=== PATIENT | female | born 1990 | race Caucasian/White ===

== ENCOUNTER 2023-06-06 10:16 | Outpatient (AMB) | payer OTHER, SELFPAY ==
--- NOTE | 2023-06-06 10:25 | A.OFFPC_ITS ---
Vital Signs 06/06/23 10:27 Height 5 ft 3 in Weight 219 lb BMI 38.8 BP 104/86 Blood Pressure Location Lt brachial Position Sitting Pulse 92 Pulse Source Pulse Oximeter Temp Source Skin Pulse Oximetry (%) 99 Oxygen Delivery Method Room Air Intake Visit Reasons: REGISTERED NURSE TEACHER, request a physical Technology Support Analyst Required: No Allergies No Known Allergies Allergy (Verified 06/06/23 10:46) Medication List - Last Reconciled 06/06/23 by RODDY Mosley No Known Home Meds Tobacco use date assessed: 06/06/23 Dental Screening Dental Screen Date: 06/06/23 Did you have a dental visit in the last 12 months?: Yes Did you have a dental problem in the last 6 months where you did not have access to dental care?: No Was dental information given to patient?: Patient has dentist HPI REGISTERED NURSE TEACHER, request a physical HPI Details Patient is a 32-year-old female presents today to establish care. Patient reports last PCP about 6 years ago. Medical history significant for depression, anxiety, OCD, PTSD, dissociated disorder-mental health conditions are followed by therapist on weekly basis-patient reports that she saw Psychiatry about 6 months ago-reports she was on antidepressant medication in the past-not interested in pharmacological intervention for depression at this time. Denies SI or HI. Patient reports intermittent right upper quadrant discomfort for the past couple days. No nausea or vomiting, no changes in bowel/bladder. She reports that her mother has ovarian cancer-will refer for genetic testing. Patient denies shortness of breath or chest pain. Patient is unemployed and she lives with her boyfriend and 5 children. [facility] Surgical History No pertinent past surgical history Family History Mother Ovarian cancer Pericarditis Alcoholic Maternal Grandmother Ovarian cancer Father No problems noted. Social History Housing: Apartment Patient Tobacco Use Status: Former Tobacco user service: No Current occupational status: unemployed Cognitive needs: No Hearing needs: No Vision needs: Yes Questionnaire PHQ-9 Over the last 2 weeks, how often have you been bothered by any of the following problems? 1. Little interest or pleasure in doing things: nearly every day 2. Feeling down, depressed, or hopeless: nearly every day 3. Trouble falling or staying asleep, or sleeping too much: nearly every day 4. Feeling tired or having little energy: nearly every day 5. Poor appetite or overeating: more than half the days 6. Feeling bad about yourself - or that you are a failure or have let yourself or your family down: more than half the days 7. Trouble concentrating on things, such as reading the newspaper or watching television: more than half the days 8. Moving or speaking so slowly that other people could have noticed. Or the opposite - being so fidgety or restless that you have been moving around a lot more than usual: not at all 9. Thoughts that you would be better off or of hurting yourself in some way: not at all Total score: 18 Depression Screening Interpretation: Positive Depression Screening Follow-up: In treatment 85385 - PHQ-9 Billing: Yes Source: Developed by Drs. Kan Rojas, Manju Aly, Jason Silva and colleagues, with an educational kashif from [employer]. Thrive Questionnaire Date Thrive assessed: 06/06/23 I am a: Patient What is your living situation today?: I have a steady place to live Within the past 12 months, did the food you bought not last and you didn't have the money to get more?: Never true Within the past 12 months, did you worry whether your food would run out before you got money to buy more?: Never true Do you have trouble paying for medicines?: No Do you have trouble getting transportation to medical appointments?: No Do you have trouble paying your heating and electricity bill?: No Do you have trouble taking care of your child, family member or friend?: No Do you have trouble with day-to-day activities such as bathing, preparing meals, shopping, managing finances, etc.?: No Are you currently unemployed and looking for a job?: No Are you interested in more education?: No Currently or been in a relationship where the following occur: no concerns reported AUDIT C Alcohol Use Questionnaire (AUDIT-C) 1. How often do you have a drink containing alcohol?: Never 2. How many drinks containing alcohol do you have on a typical day when you are drinking?: 1 or 2 (0) 3. How often do you have six or more drinks on one occasion?: Never Total Score: 0 Score Reviewed/Action Taken: No TANIA-7 AMB Questionnaire TANIA-7 Date TANIA - 7 assessed: 06/06/23 Feeling nervous, anxious, or on edge: 1 = Several days Not being able to stop or control worryin = Nearly every day Worrying too much about different things: 3 = Nearly every day Trouble relaxin = Several days Being so restless that it is hard to sit still: 1 = Several days Becoming easily annoyed or irritable: 1 = Several days Feeling afraid as if something awful might happen: 3 = Nearly every day Total TANIA-7 score (0-4 normal; 5-9 mild; 10-14 moderate; 15-21 severe): 13 Source: Developed by Drs. Kan Rojas, Manju Aly, Jason Silva and colleagues, with an educational kashif from [employer]. TANIA-7 Assessment Billing TANIA-7 Assessment Tool: TANIA-7 Assessment 13381 Review of Systems Const Denies body aches, Denies chills, Denies fever(s) and Denies headache(s) Eyes Denies change in vision ENT Denies dizziness, Denies otalgia, Denies headache(s), Denies nasal discharge, Denies sinus pain and Denies sore throat Card Denies chest pain, Denies edema, Denies lightheadedness and Denies dyspnea Resp Denies cough and Denies dyspnea GI Reports as per HPI, Reports abdominal pain, Denies constipation, Denies diarrhea, Denies nausea and Denies vomiting Denies hematuria, Denies dysuria and Denies flank pain Musc Denies myalgias Skin/Breast Denies rash Neuro Denies dizziness and Denies headache(s) Physical exam (Primary Care) Vital Signs: Last Vital Signs Pulse 92 06/06/23 10:27 BP 104/86 06/06/23 10:27 Pulse Ox 99 06/06/23 10:27 Oxygen Delivery Method Room Air 06/06/23 10:27 BMI result Body Mass Index 38.8 Tobacco/Smoking Status: Tobacco use Status Tobacco use date assessed 06/06/23 06/06/23 10:26 Patient Tobacco Use Status Former Tobacco user 06/06/23 10:44 PHQ-9: PHQ-9 Score PHQ-9: Total score 18 06/06/23 10:44 Depression Screening Interpretation: Positive Depression Screening Follow-up: In treatment Thrive Assessment: Date of Thrive Assessment Date Thrive assessed 06/06/23 06/06/23 10:27 Currently or been in a relationship where the following occur: no concerns reported Const General: cooperative and no acute distress Orientation/consciousness: patient oriented x3 HENMT Head: Yes normocephalic and Yes atraumatic Ears: TM's normal bilaterally Face and sinus: Yes sinuses nontender Mouth: oropharynx normal and moist mucous membranes Throat: Yes posterior oropharynx normal Eyes General: appearance normal, both eyes and all related structures Pupils: Equal, round and reactive pupils present EOM: EOMs intact bilaterally Neck Neck: Yes normal visual inspection, Yes full ROM and Yes no lymphadenopathy Thyroid: Thyroid normal Resp Effort & Inspection: normal respiratory effort and able to speak in complete sentences Auscultation: clear to auscultation bilaterally, no crackles, no rales, no rhonchi and no wheezes Cardio Rate: regular rate Rhythm: regular rhythm Heart sounds: S1 normal heart sound present, S2 normal heart sound present and no murmurs GI Other: Patient reports when palpating RUQ she can feel mild discomfort in LUQ Palpation (GI): Soft to palpation, not firm, Tenderness to palpation present (GI) in the RUQ (Mild discomfort); Durand's sign negative and with no rebound tenderness, no guarding, not rigid and no hepatosplenomegaly Auscultation: normal bowel sounds General: No CVA tenderness Back/Spine/Pelvis Back: No CVA tenderness Skin General skin exam: no rashes or lesions noted Neuro General: patient oriented x3 Cranial nerves: Yes Equal, round and reactive pupils present Gait exam (Neuro): Normal gait present Extrem General: Yes full ROM and No edema Assessment and Plan Assessment & Plan (1) RUQ abdominal pain: Code(s): R10.11 - Right upper quadrant pain Plan: See HPI and physical exam for details Abdominal ultrasound ordered Avoid fatty foods (2) Genetic testing: Code(s): Z13.79 - Encounter for other screening for genetic and chromosomal anomalies Plan: Mother with ovarian cancer-will refer for genetic testing (3) Encounter to establish care: Code(s): Z76.89 - Persons encountering health services in other specified circumstances Plan: Patient presents to establish care, blood work ordered (4) Depression: Code(s): F32.A - Depression, unspecified Qualifiers: Depression Type: other depression Qualified Code(s): F32.89 - Other specified depressive episodes Plan: Continue to follow-up with therapist on weekly basis Patient denies SI or HI Reports being on antidepressant medication in the past, not interested in pharmacological intervention at this time, was seen by Psychiatry about 6 months ago (5) Anxiety: Code(s): F41.9 - Anxiety disorder, unspecified Plan: Continue to follow-up with therapist on weekly basis Plan Follow-up in 2 months for PE and labs Orders: Orders Vitamin B12 and Folate Today Z76.89 - Persons encountering health services in other specified circumstances Comprehensive [place]. Panel Fast Today Z76. - Persons encountering health services in other specified circumstances Lipid Panel Today Z76. - Persons encountering health services in other specified circumstances TSH reflex Free T4 Today Z76.89 - Persons encountering health services in other specified circumstances Vitamin D 25-OH Total Today Z76.89 - Persons encountering health services in other specified circumstances Complete Blood Count Auto Diff Today Z76.89 - Persons encountering health services in other specified circumstances US abdomen complete Today R10.11 - Right upper quadrant pain Referrals General Surgery Referral Z13.79 - Encounter for other screening for genetic and chromosomal anomalies Coding Level of Care Code New Pt Level 3 (58962) Diagnoses RUQ abdominal pain R10.11 Genetic testing Z13.79 Encounter to establish care Z76. Depression F32.89 Depression Type: other depression Anxiety F41.9 Additional Codes TANIA-7 Assessment Billing - TANIA-7 Assessment Tool: TANIA-7 Assessment 99359 ([id number])
[2023-06-06 10:27] VITALS: BP 104/86; PULSE 92; O2SAT 99; BMI 38.8
== END 2023-06-06 11:02 | disposition home or self-care (01) ==
PROVIDERS: Visit Provider Nurse Practitioner Family
DX: R10.11 Right upper quadrant pain (principal); Z13.79 Encounter for other screening for genetic and chromosomal anomalies; Z76.89 Persons encountering health services in other specified circumstances; F41.9 Anxiety disorder, unspecified; F32.89 Other specified depressive episodes
CPT/HCPCS: 99203

== ENCOUNTER 2023-06-13 14:36 | Outpatient (REF) | payer OTHER, SELFPAY ==
--- NOTE | ~2023-06-13 | US_ITS ---
EXAMINATION: US ABDOMEN COMPLETE CLINICAL INFORMATION: Right upper quadrant pain. COMPARISON: None available. TECHNIQUE: Real-time imaging of the abdominal viscera. Technically limited study secondary to bowel gas. FINDINGS: PANCREAS: Not well seen due to shadowing from overlying bowel gas. ABDOMINAL AORTA: The proximal, mid, and distal segments are normal in caliber. INFERIOR VENA CAVA: Visualized portions are normal. LIVER: Heterogeneous parenchymal echotexture. Normal size and shape. No focal hepatic lesion. There is no intrahepatic biliary duct dilatation seen. GALLBLADDER: Normal. The gallbladder is physiologically distended without evidence of stones, sludge, polyps, wall thickening or pericholecystic fluid. COMMON BILE DUCT: Normal in caliber measuring 0.3 cm in diameter. RIGHT KIDNEY: Normal. No hydronephrosis. No renal calculi or focal parenchymal lesions. The kidney measures 10.5 cm in maximum dimension. LEFT KIDNEY: Normal. No hydronephrosis. No renal calculi or focal parenchymal lesions. The kidney measures 10.0 cm in maximum dimension. SPLEEN: Normal. The spleen measures 10.6 cm in maximum dimension. FREE FLUID: None. US/US abdomen complete IMPRESSION: 1. Nonspecific heterogeneous parenchymal echotexture of the liver which could be seen in the setting of hepatic steatosis or hepatocellular disease. Correlate with liver function tests. 2. Otherwise, normal examination.
== END 2023-06-13 14:37 | disposition home or self-care (01) ==
LOC: HO.US 14:36
PROVIDERS: PCP Nurse Practitioner Family; Visit Provider Nurse Practitioner Family
DX: R10.11 Right upper quadrant pain (principal)
CPT/HCPCS: 76700

== ENCOUNTER 2023-06-28 08:15 | Outpatient (REF) | payer OTHER, SELFPAY ==
[2023-06-28 08:25] LABS: MANUAL DIFF FLAG NO
[2023-06-28 09:42] LABS: Basophils Absolute Auto 0.1 X10*3/uL (0.0-0.2); Basophils Percent Auto 0.9 % (0-2); Eosinophils Absolute Auto 0.2 X10*3/uL (0.0-0.4); Eosinophils Percent Auto 2.8 % (0-4); Hematocrit 39.3 % (37.0-47.0); Hemoglobin 12.9 g/dl (12.0-16.0); Imm Gran Abs Auto 0.02 X10*3/uL (0.00-0.03); Imm Gran Pct Auto 0.3 % (0.0-0.4); Lymphocytes Absolute Auto 2.6 X10*3/uL (1.2-4.9); Lymphocytes Percent Auto 40.2 % (20-40); Mean Corpuscular HGB Conc 32.8 g/dl (31.0-35.0); Mean Corpuscular Hemoglobin 29.3 pg (27.0-33.0); Mean Corpuscular Volume 89.1 fL (80.0-98.0); Monocytes Absolute Auto 0.7 X10*3/uL (0.1-1.2); Monocytes Percent Auto 10.2 % (2-11); Neutrophils Absolute Auto 2.9 x10*3/uL (2.0-8.3); Neutrophils Percent Auto 45.6 % (45-73); Platelet Count 376 X10*3/uL (160-400); Red Blood Count 4.41 X10*6/uL (4.20-5.50); White Blood Count 6.4 X10*3/uL (4.8-10.8)
[2023-06-28 11:02] LABS: Alanine Aminotransferase 13 U/L (0-31); Alkaline Phosphatase 76 U/L (39-117); Anion Gap 12 (12-20); Aspartate Amino Transferase 13 U/L (5-31); Bilirubin Total 0.4 mg/dL (0.0-1.0); Blood Urea Nitrogen 11 mg/dL (9-16); Calcium 9.5 mg/dL (8.4-10.2); Carbon Dioxide 25 mmol/L (22-29); Chloride 107 mmol/L (96-108); Cholesterol 159 mg/dL; Estimated Glomerular Filt Rate > 60; Glucose Fasting 83 mg/dL (60-99); HDL Cholesterol 37 mg/dL; LDL Cholesterol Calculated 107 mg/dl; Potassium 3.8 mmol/L (3.3-5.1); Sodium 140 mmol/L (135-145); Total Protein 7.3 g/dL (6.5-8.0); Triglycerides 77 mg/dL
[2023-06-28 11:03] LABS: HBS Num1 5.22 mIU/mL (0-7.99); HBc Num1 0.06 S/CO (0.00-0.79); HBsAGNum1 0.38 S/CO (0.00-0.99); Hepatitis B Core Antibody Nonreactive (Nonreactive); Hepatitis B Surface Antigen Negative (Negative); ~HepC Num1 0.08 S/CO (0.00-0.79); ~Hepatitis A Antibody IgM Nonreactive (Nonreactive); ~Hepatitis B Surface Antibody NONREACTIVE (Nonreactive); ~Hepatitis C Antibody Nonreactive (Nonreactive)
[2023-06-28 11:10] LABS: Vitamin B12 376 pg/mL (200-900)
[2023-06-28 11:21] LABS: TSH reflex Free T4 4.38 uIU/mL (0.32-4.0); Vitamin D 25-OH Total 13.3 ng/mL (>30)
[2023-06-28 12:37] LABS: Free T4 (Free Thyroxine) 0.75 ng/dL (0.71-1.85)
== END 2023-06-28 08:16 | disposition home or self-care (01) ==
LOC: HO.LAB 08:15
PROVIDERS: PCP Nurse Practitioner Family; Visit Provider Nurse Practitioner Family
DX: R10.11 Right upper quadrant pain (principal); Z76.89 Persons encountering health services in other specified circumstances
CPT/HCPCS: 36415; 80053; 80061; 82306; 82607; 82746; 84439; 84443; 85025; 86704; 86706; 86709; 86803; 87340

== ENCOUNTER 2023-07-26 15:06 | Outpatient (AMB) | payer OTHER, SELFPAY ==
[2023-07-26 15:11] VITALS: BP 109/66; PULSE 97; BMI 38.3
--- NOTE | 2023-07-26 15:11 | A.OFFVIS_ITS ---
Intake Vital Signs 07/26/23 15:11 Height 5 ft 3 in Weight 216 lb BMI 38.3 BP 109/66 Blood Pressure Location Rt brachial Position Sitting Pulse 97 Intake Visit Reasons: Encounter for other screening for genetic Intake Note: This patient presents for an assessment for genetic testing, family history of cancer. Patient c/o; denies breast complaints at this time. 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 She was sent by her primary care physician as she has a strong history of ovarian cancer in her family. She says her mother was diagnosed to have ovarian cancer in her 20s. A maternal aunt was also diagnosed to have ovarian cancer in her 30s. She says her maternal grandmother was diagnosed to have ovarian cancer although she is uncertain about the age. She denies any history of breast cancer in the family She denies any significant complaints at this time. [facility] Medical History (Updated 07/26/23 @ 15:33 by Filemon Connolly MD) Family history of ovarian cancer Morbid obesity Surgical History No pertinent past surgical history Family History Mother Ovarian cancer, Onset Age: 23 Pericarditis Alcoholic Maternal Grandmother Ovarian cancer Father No problems noted. Family/Other Breast cancer Maternal Aunt Ovarian cancer, Onset Age: 34 Social History Housing: Apartment Patient Tobacco Use Status: Former Tobacco user service: No Current occupational status: unemployed Cognitive needs: No Hearing needs: No Vision needs: Yes Female Reproductive History Menstrual Age of Menarche: 13 Total pregnancies: 3 Review of Systems Const Denies chills and Denies fever(s) Card Denies chest pain, Denies dyspnea and Denies dyspnea on exertion Resp Denies cough, Denies dyspnea and Denies dyspnea on exertion GI Denies hematochezia and Denies change in bowel habits Denies hematuria Musc Denies back pain and Denies limited range of motion Neuro Denies focal weakness and Denies convulsions Psych Denies depression and Denies mood swings Physical Exam Vital Signs: Last Vital Signs Pulse 97 07/26/23 15:11 BP 109/66 07/26/23 15:11 BMI result Body Mass Index 38.3 Const Other: Morbidly obese General: comfortable and no acute distress Orientation/consciousness: patient oriented x3 Neck Neck: Yes no lymphadenopathy Resp Auscultation: clear to auscultation bilaterally Cardio Rhythm: regular rhythm GI Palpation (GI): Soft to palpation, nontender and no guarding Neuro General: patient oriented x3 Assessment & Plan Assessment & Plan (1) Family history of ovarian cancer: Code(s): Z80.41 - Family history of malignant neoplasm of ovary Plan: She has a strong family history of ovarian cancer as described above. Her mother, maternal aunt and grandmother all had ovarian cancer. I therefore explained to her the option of proceeding with genetic testing. I explained to her the occasions of this test to herself and her family. Says he understands and wants to proceed. We will schedule her for genetic counseling as well as genetic testing with [facility]. (2) Morbid obesity: Code(s): E66.01 - Morbid (severe) obesity due to excess calories Plan: I also explained to her that morbid obesity is an independent risk factor for development of cancer in the future. I therefore explained to her the benefits of weight loss. She says he understands. Coding Level of Care Code New Pt Level 3 (86362) Diagnoses Family history of ovarian cancer Z80.41 Morbid obesity E66.01
== END 2023-07-26 15:54 | disposition home or self-care (01) ==
PROVIDERS: PCP Nurse Practitioner Family; Referring Provider Nurse Practitioner Family; Visit Provider Surgery
DX: Z80.41 Family history of malignant neoplasm of ovary (principal); E66.01 Morbid (severe) obesity due to excess calories
CPT/HCPCS: 99203

== ENCOUNTER → 2023-07-26 15:06 | Outpatient (BNVA) | payer OTHER, SELFPAY | PROVIDERS: PCP Nurse Practitioner Family; Referring Provider Nurse Practitioner Family; Visit Provider Surgery | DX: E66.01 Morbid (severe) obesity due to excess calories (principal); Z68.38 Body mass index [BMI] 38.0-38.9, adult; Z80.41 Family history of malignant neoplasm of ovary | CPT/HCPCS: 99202 ==

== ENCOUNTER 2023-08-08 08:35 | Outpatient (REF) | payer OTHER, SELFPAY ==
[2023-08-08 11:16] LABS: TSH reflex Free T4 4.09 uIU/mL (0.32-4.0)
[2023-08-08 11:47] LABS: Free T4 (Free Thyroxine) 0.82 ng/dL (0.71-1.85)
== END 2023-08-08 08:36 | disposition home or self-care (01) ==
LOC: HO.LAB 08:35
PROVIDERS: PCP Nurse Practitioner Family; Visit Provider Nurse Practitioner Family
DX: R79.89 Other specified abnormal findings of blood chemistry (principal)
CPT/HCPCS: 36415; 84439; 84443

== ENCOUNTER 2023-08-09 09:16 | Outpatient (AMB) | payer OTHER, SELFPAY ==
[2023-08-09 09:17] VITALS: BP 112/80; PULSE 87; O2SAT 99; BMI 37.7
--- NOTE | 2023-08-09 09:17 | MHC.PC.OV ---
Vital Signs 08/09/23 09:17 Height 5 ft 3 in Weight 213 lb BMI 37.7 BP 112/80 Blood Pressure Location Lt brachial Position Sitting Pulse 87 Pulse Source Pulse Oximeter Temp Source Skin Pulse Oximetry (%) 99 Oxygen Delivery Method Room Air Intake Visit Reasons: pe Intake Note: Patient is here today for a physical. Cloud Administrator Required: No Allergies No Known Allergies Allergy (Verified 08/09/23 09:38) Medication List - Last Reconciled 08/09/23 by RODDY Mosley cholecalciferol (vitamin D3) 50 mcg PO DAILY Tobacco use date assessed: 08/09/23 Dental Screening Dental Screen Date: 08/09/23 Did you have a dental visit in the last 12 months?: No Did you have a dental problem in the last 6 months where you did not have access to dental care?: No Was dental information given to patient?: Patient has dentist HPI pe HPI Details Patient is a 32-year-old female presents today for physical exam. Medical history significant for depression, anxiety, OCD, PTSD, dissociated disorder-mental health conditions are followed by therapist on weekly basis-patient reports that she saw Psychiatry about 6 months ago-reports she was on antidepressant medication in the past-not interested in pharmacological intervention for depression at this time. Denies SI or HI. Today we discussed patient's need for cervical cancer screening, she reports last Pap smear in 2019 which was normal. We also discussed patient's need for tetanus vaccine. Patient is interested in filenet admin referral due to obesity. Patient reports intermittent left sided chest pains, she reports that in the past she was told that this is her bruised bones, reports that pain is intermittent, lasts less than 1 minute, not related to activity. Does not take anything for pain. Patient has an upcoming appointment for dental and eye exams. Patient denies any abdominal pains. [facility] Medical History (Updated 08/09/23 @ 09:59 by RODDY Mosley) Genetic testing Encounter to establish care Family history of ovarian cancer Morbid obesity Surgical History No pertinent past surgical history Family History Mother Ovarian cancer, Onset Age: 23 Pericarditis Alcoholic Maternal Grandmother Ovarian cancer Father No problems noted. Family/Other Breast cancer Maternal Aunt Ovarian cancer, Onset Age: 34 Social History Housing: Apartment Patient Tobacco Use Status: Former Tobacco user service: No Current occupational status: unemployed Cognitive needs: No Hearing needs: No Vision needs: Yes Female Reproductive History Menstrual Age of Menarche: 13 Questionnaire PHQ-9 Over the last 2 weeks, how often have you been bothered by any of the following problems? 1. Little interest or pleasure in doing things: nearly every day 2. Feeling down, depressed, or hopeless: nearly every day 3. Trouble falling or staying asleep, or sleeping too much: nearly every day 4. Feeling tired or having little energy: nearly every day 5. Poor appetite or overeating: more than half the days 6. Feeling bad about yourself - or that you are a failure or have let yourself or your family down: more than half the days 7. Trouble concentrating on things, such as reading the newspaper or watching television: more than half the days 8. Moving or speaking so slowly that other people could have noticed. Or the opposite - being so fidgety or restless that you have been moving around a lot more than usual: not at all 9. Thoughts that you would be better off or of hurting yourself in some way: not at all Total score: 18 Depression Screening Interpretation: Positive Depression Screening Follow-up: In treatment 54440 - PHQ-9 Billing: Yes Source: Developed by Drs. Kan Rojas, Manju Aly, Jason Silva and colleagues, with an educational kashif from [employer]. Thrive Questionnaire Date Thrive assessed: 06/06/23 AUDIT C Alcohol Use Questionnaire (AUDIT-C) 1. How often do you have a drink containing alcohol?: Never 2. How many drinks containing alcohol do you have on a typical day when you are drinking?: 1 or 2 (0) 3. How often do you have six or more drinks on one occasion?: Never Total Score: 0 Score Reviewed/Action Taken: No TANIA-7 AMB Questionnaire TANIA-7 Date TANIA - 7 assessed: 06/06/23 Feeling nervous, anxious, or on edge: 1 = Several days Not being able to stop or control worryin = Nearly every day Worrying too much about different things: 3 = Nearly every day Trouble relaxin = Several days Being so restless that it is hard to sit still: 1 = Several days Becoming easily annoyed or irritable: 1 = Several days Feeling afraid as if something awful might happen: 3 = Nearly every day Total TANIA-7 score (0-4 normal; 5-9 mild; 10-14 moderate; 15-21 severe): 13 Source: Developed by Drs. Kan Rojas, Manju Aly, Jason Silva and colleagues, with an educational kashif from [employer]. TANIA-7 Assessment Billing TANIA-7 Assessment Tool: TANIA-7 Assessment 62554 Review of Systems Const Denies body aches, Denies chills, Denies fever(s) and Denies headache(s) Eyes Denies change in vision ENT Denies dizziness, Denies otalgia, Denies headache(s), Denies nasal discharge, Denies sinus pain and Denies sore throat Card Reports as per HPI, Denies chest pain, Denies edema, Denies lightheadedness and Denies dyspnea Resp Denies cough and Denies dyspnea GI Denies abdominal pain, Denies constipation, Denies diarrhea, Denies nausea and Denies vomiting Denies hematuria, Denies dysuria and Denies flank pain Musc Denies myalgias Skin/Breast Denies rash Neuro Denies dizziness and Denies headache(s) Physical exam (Primary Care) Vital Signs: Last Vital Signs Pulse 87 08/09/23 09:17 BP 112/80 08/09/23 09:17 Pulse Ox 99 08/09/23 09:17 Oxygen Delivery Method Room Air 08/09/23 09:17 BMI result Body Mass Index 37.7 Tobacco/Smoking Status: Tobacco use Status Tobacco use date assessed 08/09/23 08/09/23 09:18 Patient Tobacco Use Status Former Tobacco user 08/09/23 09:18 PHQ-9: PHQ-9 Score PHQ-9: Total score 18 08/09/23 09:39 Depression Screening Interpretation: Positive Depression Screening Follow-up: In treatment Thrive Assessment: Date of Thrive Assessment Date Thrive assessed 06/06/23 08/09/23 09:18 Const General: cooperative and no acute distress Orientation/consciousness: patient oriented x3 HENMT Head: Yes normocephalic and Yes atraumatic Ears: TM's normal bilaterally Face and sinus: Yes sinuses nontender Mouth: oropharynx normal and moist mucous membranes Throat: Yes posterior oropharynx normal Eyes General: appearance normal, both eyes and all related structures Pupils: Equal, round and reactive pupils present EOM: EOMs intact bilaterally Neck Neck: Yes normal visual inspection, Yes full ROM and Yes no lymphadenopathy Thyroid: Thyroid normal Chest Chest palpation & inspection: tenderness (Proxima left chest mild tenderness to palpation) Resp Effort & Inspection: normal respiratory effort and able to speak in complete sentences Auscultation: clear to auscultation bilaterally, no crackles, no rales, no rhonchi and no wheezes Cardio Rate: regular rate Rhythm: regular rhythm Heart sounds: S1 normal heart sound present, S2 normal heart sound present and no murmurs GI Palpation (GI): Soft to palpation, not firm, nontender, no guarding, not rigid and no hepatosplenomegaly Auscultation: normal bowel sounds General: No CVA tenderness Back/Spine/Pelvis Back: No CVA tenderness Skin General skin exam: no rashes or lesions noted Neuro General: patient oriented x3 Cranial nerves: Yes Equal, round and reactive pupils present Gait exam (Neuro): Normal gait present Extrem General: Yes full ROM and No edema Immunizations Boostrix Tdap 2.5 Lf unit-8 mcg-5 Lf/0.5 mL intramuscular syringe Performing Provider: RODDY Mosley Performing Location: [facility] Administered by: LANDON Mckeon on 08/09/23 09:51 Dose Route Admin Location Dispensed Lot Number Expiration Date [facility] Spareribs Trimmer 0.5 mL IM Left Deltoid 0.5 mL [id number] 08/15/25 [id number] Skinny Mom VIS Given Date VIS Provided VIS Publication Date 08/09/23 Single Vaccine 21 Eligibility Eligibility Date Funding Source Not [facility] Eligible 08/09/23 Private Assessment and Plan Assessment & Plan (1) RUQ abdominal pain: Code(s): R10.11 - Right upper quadrant pain Plan: LFTs normal, hepatitis panel negative Encouraged low-cholesterol diet and weight loss 05/2023 US/US abdomen complete IMPRESSION: 1. Nonspecific heterogeneous parenchymal echotexture of the liver which could be seen in the setting of hepatic steatosis or hepatocellular disease. Correlate with liver function tests. 2. Otherwise, normal examination. (2) Depression: Code(s): F32.A - Depression, unspecified Qualifiers: Depression Type: other depression Qualified Code(s): F32.89 - Other specified depressive episodes Plan: Continue to follow-up with therapist on weekly basis Patient denies SI or HI Reports being on antidepressant medication in the past, not interested in pharmacological intervention at this time, was seen by Psychiatry about 6 months ago (3) Anxiety: Code(s): F41.9 - Anxiety disorder, unspecified Plan: Continue to follow-up with therapist on weekly basis (4) Costochondritis: Code(s): M94.0 - Chondrocostal junction syndrome [Tietze] Plan: Proxima left chest mild tenderness to palpation Will treat with diclofenac cream q.i.d. p.r.n. Encouraged heating packs p.r.n. Patient also can try [id number] ibuprofen 400 mg every 8 hours as needed Signs and symptoms reviewed when to notify provider or go to the emergency department (5) Cervical cancer screening: Code(s): Z12.4 - Encounter for screening for malignant neoplasm of cervix (6) Low vitamin D level: Code(s): R79.89 - Other specified abnormal findings of blood chemistry Plan: Continue vitamin D3 50 mcg daily (7) Adult general medical exam: Code(s): Z00.00 - Encounter for general adult medical examination without abnormal findings Plan: Repeat in 1 year (8) Obesity (BMI 30-39.9): Code(s): E66.9 - Obesity, unspecified Plan: Healthy food choices and exercise as tolerated Rand Cementer referral Orders: Orders TDaP Immunization Today Z23 - Encounter for immunization Referrals Spray Machine Loader Nutrition Referral E66.01 - Morbid (severe) obesity due to excess calories TUBE REBUILDER Referral Z12.4 - Encounter for screening for malignant neoplasm of cervix Medications: New diclofenac sodium 1% (Arthritis Pain (diclofenac)) 2 grams topical QID PRN 100 grams 0RF pain M94.0 - Chondrocostal junction syndrome [Tietze] Coding Level of Care Code Est Pt Prev Care 18-39y(29890) Diagnoses RUQ abdominal pain R10.11 Other depression F32.89 Depression Type: other depression Anxiety F41.9 Costochondritis M94.0 Cervical cancer screening Z12.4 Low vitamin D level R79.89 Adult general medical exam Z00.00 Obesity (BMI 30-39.9) E66.9 Additional Codes TANIA-7 Assessment Billing - TANIA-7 Assessment Tool: TANIA-7 Assessment 82042 ([id number])
== END 2023-08-09 09:58 | disposition home or self-care (01) ==
PROVIDERS: PCP Nurse Practitioner Family; Visit Provider Nurse Practitioner Family
DX: Z00.00 Encounter for general adult medical examination without abnormal findings (principal); F41.9 Anxiety disorder, unspecified; F32.89 Other specified depressive episodes; Z23 Encounter for immunization; R10.11 Right upper quadrant pain; M94.0 Chondrocostal junction syndrome [Tietze]; R79.89 Other specified abnormal findings of blood chemistry; E66.9 Obesity, unspecified
CPT/HCPCS: 90471; 90715; 99395

== ENCOUNTER 2023-09-06 14:58 | Outpatient (AMB) | payer OTHER, SELFPAY ==
--- NOTE | 2023-09-06 15:12 | A.OFFVIS_ITS ---
Intake Intake Visit Reasons: genetic test results *HERE* Intake Note: This patient presents for a follow-up assessment for genetic test results. Patient c/o; reports no changes. 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 I had sent her for [facility] genetic testing and counseling because of her family history of ovarian cancer. She denies any new complaints. [facility] Medical History Genetic testing Encounter to establish care Family history of ovarian cancer Morbid obesity Surgical History No pertinent past surgical history Family History Mother Ovarian cancer, Onset Age: 23 Pericarditis Alcoholic Maternal Grandmother Ovarian cancer Father No problems noted. Family/Other Breast cancer Maternal Aunt Ovarian cancer, Onset Age: 34 Social History Housing: Apartment Patient Tobacco Use Status: Former Tobacco user service: No Current occupational status: unemployed Cognitive needs: No Hearing needs: No Vision needs: Yes Female Reproductive History Menstrual Age of Menarche: 13 Review of Systems Const Denies chills and Denies fever(s) Card Denies chest pain Resp Denies cough GI Denies abdominal pain Physical Exam Const General: comfortable and no acute distress Resp Effort & Inspection: abnormal respiratory effort Assessment & Plan Assessment & Plan (1) Family history of ovarian cancer: Code(s): Z80.41 - Family history of malignant neoplasm of ovary Plan: Her genetic testing did not reveal any significant mutations. I explained to her these findings. I did tell her that because of her family history, she should having mammograms between the age of 35 in 40. She is morbidly obese so I also advised her on the benefits of weight loss which will affect her cancer risks as well. Coding Level of Care Code Est Pt Level 2 (02999) Diagnoses Family history of ovarian cancer Z80.41
== END 2023-09-06 15:22 | disposition home or self-care (01) ==
PROVIDERS: PCP Nurse Practitioner Family; Visit Provider Surgery
DX: Z80.41 Family history of malignant neoplasm of ovary (principal)
CPT/HCPCS: 99212

== ENCOUNTER → 2023-09-06 14:58 | Outpatient (BNVA) | payer OTHER, SELFPAY | PROVIDERS: PCP Nurse Practitioner Family; Visit Provider Surgery | DX: Z71.2 Person consulting for explanation of examination or test findings (principal); Z80.41 Family history of malignant neoplasm of ovary | CPT/HCPCS: 99212 ==

== ENCOUNTER 2024-02-29 09:04 | Outpatient (REF) | payer OTHER, SELFPAY ==
[2024-03-01 06:35] LABS: CT PCR NOT DETECTED (Not Detect.); NG PCR NOT DETECTED (Not Detect.)
[2024-03-01 13:10] LABS: BV Int Neg Control Negative (Negative); BV Int Pos Control Positive (Positive)
[2024-03-07 23:29] LABS: HPV mRNA E6/E7 rflx Not Detected (Not Detected)
== END 2024-02-29 09:05 | disposition home or self-care (01) ==
LOC: HO.LAB 09:04
PROVIDERS: PCP Internal Medicine; Visit Provider Advanced Practice Midwife
DX: Z01.419 Encounter for gynecological examination (general) (routine) without abnormal findings (principal); N93.9 Abnormal uterine and vaginal bleeding, unspecified; E66.01 Morbid (severe) obesity due to excess calories; F44.9 Dissociative and conversion disorder, unspecified; F43.10 Post-traumatic stress disorder, unspecified; Z20.2 Contact with and (suspected) exposure to infections with a predominantly sexual mode of transmission; Z11.3 Encounter for screening for infections with a predominantly sexual mode of transmission; Z80.41 Family history of malignant neoplasm of ovary; Z68.37 Body mass index [BMI] 37.0-37.9, adult
CPT/HCPCS: 0353U; 81025; 87480; 87510; 87624; 87660; 88142; 99385

== ENCOUNTER 2024-02-29 09:04 | Outpatient (AMB) | payer OTHER, SELFPAY ==
[2024-02-29 09:27] VITALS: BP 110/66; BMI 37.6
--- NOTE | 2024-02-29 09:27 | A.OFFVIS_ITS ---
Intake Vital Signs 02/29/24 09:27 Height 5 ft 3 in Weight 212 lb BMI 37.6 BP 110/66 Intake Visit Reasons: New patient Annual Title Supervisor Required: No Information Interpreted: clinical only Vendor Manager: Vendor Manager Present Allergies No Known Allergies Allergy (Verified 02/29/24 09:27) Medication List - Last Reconciled 02/29/24 by Savannah Weir CNM cholecalciferol (vitamin D3) 50 mcg PO DAILY diclofenac sodium 1% (Arthritis Pain (diclofenac)) 2 grams topical QID PRN Is last menstrual period known: Yes Last menstrual period: 02/19/24 Do you need a note to return to daycare/school/sports/work: No HPI HPI Comments History of Present Illness Details Patient is here unsure if this is her annual exam or for the problem visit that was scheduled because she had 2 weeks of bleeding very very heavy with clots followed by 6 days a week or as followed by a restart the bleeding February 18 that ended yesterday. She has never had bleeding like this before she uses condoms for control she is embarked on a weight loss program by eating very very healthy salads little chicken at in her salads yogurt or special K breakfast and doing lots of physical exercise with walking jump rope and sit-ups and pushups. She has been told she has fatty liver disease and does need to lose weight and she has been working hard on it for the last month and has lost 10 lb. She was on Depo-Provera years ago and she gained a lot a weight on it. She previously used to get here in [place].She is on disability for various PTSD issues [facility] Medical History Genetic testing Encounter to establish care Family history of ovarian cancer Morbid obesity Surgical History No pertinent past surgical history Family History Mother Ovarian cancer, Onset Age: 23 Pericarditis Alcoholic Maternal Grandmother Ovarian cancer Father No problems noted. Family/Other Breast cancer Maternal Aunt Ovarian cancer, Onset Age: 34 Social History Housing: Apartment Patient Tobacco Use Status: Former Tobacco user service: No Current occupational status: unemployed Cognitive needs: No Hearing needs: No Vision needs: Yes Female Reproductive History Menstrual Age of Menarche: 13 Duration of menses: 8-10 days Date of last menstrual period: 02/19/24 control method: none Total pregnancies: 3 Full term: 3 History of abnormal pap smear: No (2018,neg,per patient) Physical Exam Vital Signs: Last Vital Signs BP 110/66 02/29/24 09:27 BMI result Body Mass Index 37.6 Const General: healthy appearing, comfortable, no acute distress, well developed and alert Nutritional Appearance: average body habitus Orientation/consciousness: patient oriented x3 Limitations: no limitations HEENT Head: Yes normocephalic Neck Neck: Yes normal visual inspection Chest Chest palpation & inspection: normal inspection of the chest Breast/axilla inspection: normal inspection of the breasts and normal inspection of the axillae Breast/axilla palpation: normal palpation of the breasts and normal palpation of the axillae Resp Effort & Inspection: normal respiratory effort GI Inspection: Yes normal to inspection, No Abdominal wall edema and No distended Palpation (GI): Soft to palpation and nontender Other: External exam within normal limits vagina is pink and moist cervix is multiparous pink smooth healthy appearing normal appearing mucus uterus is small anteverted mobile nontender adnexa nontender very weak tone with Kegel instructed on doing Kegel's several times a day. General: Yes bladder normal to palpation External Female Exam: normal external appearance and normal appearance of the urethra Speculum Exam - Vagina: normal appearance of the vagina, normal palpation and normal vaginal discharge Speculum Exam - Cervix: normal appearance of the cervix, normal palpation and nontender Bimanual exam- vagina & uterus: normal bimanual exam, normal palpation, uterine size normal, bladder normal to palpation, consistency normal, normal palpation, uterine mobility normal, uterine shape normal, No Cervical tenderness present, non-tender and no cervical motion tenderness Bimanual Exam- Adnexa, other: normal adnexae, no masses, normal and No adnexal tenderness Neuro General: patient oriented x3 Results AMB Test Urine AMB Test Urine Negative Last Edit by Tonny Isbell CMA on 02/29/24 10:31 Assessment & Plan Assessment & Plan (1) Obesity (BMI 30-39.9): Code(s): E66.9 - Obesity, unspecified (2) Cervical cancer screening: Code(s): Z12.4 - Encounter for screening for malignant neoplasm of cervix (3) Dissociative disorder: Code(s): F44.9 - Dissociative and conversion disorder, unspecified (4) PTSD (post-traumatic stress disorder): Code(s): F43.10 - Post-traumatic stress disorder, unspecified (5) Abnormal uterine bleeding (AUB): Code(s): N93.9 - Abnormal uterine and vaginal bleeding, unspecified Plan Since patient is year for an annual but mainly here to discuss her unusual abnormal bleeding or 2 weeks the by a brief 6 days and another renewal bleeding for another 10 days, which has just ended and is due have a pelvic ultrasound and have her return when the ultrasound is done and we will do an endometrial biopsy after the ultrasound is done. Then after that we can have a discussion about what else maybe done to manage her dysfunctional bleeding. We will proceed in steps. She normally said she has associated behaviors during pelvic exams and that she was able to communicate during the exam very well. I reviewed with her the plan going forward meanwhile she is actually doing the most important thing she can for her health which is working aggressively on her weight loss program with healthy exercise and eating. I also did mention the weight loss management programs and some of their approaches as well if she wants to consider those and speed up the process. She will be following up with her primary in 3 months as well I will see her for the endometrial biopsy after the ultrasound. Pap smear and cultures were done today. Coding Level of Care Code New Pt Prev Care 18-39yr([id number] Diagnoses Obesity (BMI 30-39.9) E66.9 Cervical cancer screening Z12.4 Dissociative disorder F44.9 PTSD (post-traumatic stress disorder) F43.10 Abnormal uterine bleeding (AUB) N93.9
== END 2024-02-29 10:32 | disposition home or self-care (01) ==
LOC: HO.HWSM 09:04
PROVIDERS: PCP Internal Medicine; Visit Provider Advanced Practice Midwife
DX: Z01.419 Encounter for gynecological examination (general) (routine) without abnormal findings (principal); N93.9 Abnormal uterine and vaginal bleeding, unspecified; F44.9 Dissociative and conversion disorder, unspecified; F43.10 Post-traumatic stress disorder, unspecified; Z32.02 Encounter for pregnancy test, result negative
CPT/HCPCS: 99385

== ENCOUNTER 2024-03-12 11:03 | Outpatient (REF) | payer OTHER, SELFPAY ==
--- NOTE | ~2024-03-12 | US_ITS ---
EXAMINATION: US PELVIS CLINICAL INFORMATION: Abnormal uterine and vaginal bleeding. COMPARISON: None available. TECHNIQUE: Ultrasound of the pelvis is performed using both transabdominal and transvaginal transducers along with Doppler. Transvaginal imaging is performed due to inadequate visualization transabdominally. FINDINGS: UTERUS: The uterus is anteverted and measures 10.0 x 5.2 x 5.9 cm for a volume of about 150 mL. The double wall endometrial thickness is 13 mm. The uterus is smooth in contour and has normal myometrial echogenicity. No visible fibroid. ADNEXA: Both ovaries are visualized. There is normal color flow to the adnexa. There is no ovarian torsion. There is no pelvic ascites or fluid collection. Right ovary measures 3.3 x 2.2 x 2.1 cm for a volume of 8.1 mL. Left ovary measures 3.7 x 2.1 x 2.2 cm for volume of 11.4 mL. US/US pelvic and transvaginal IMPRESSION: Unremarkable pelvic ultrasound.
== END 2024-03-12 11:04 | disposition home or self-care (01) ==
LOC: HO.US 11:03
PROVIDERS: PCP Internal Medicine; Visit Provider Advanced Practice Midwife
DX: N93.9 Abnormal uterine and vaginal bleeding, unspecified (principal)
CPT/HCPCS: 76830; 76856